=== PATIENT | female | born 1990 | race Two or more races ===

== ENCOUNTER → 2017-08-23 | Emergency (ER) | payer OTHER ==
[~2017-08-23] VITALS: Ht 144.8 cm; Wt 56.7 kg
[~2017-08-23] MED LIST: GILTUSS TR TAB1 EACH PO; ZITHROMAX500 MG PO
== END | disposition home or self-care (01) ==
LOC: ER 09:30
DX: K29.60 Other gastritis without bleeding (principal)

== ENCOUNTER 2020-07-04 23:58 | Emergency (ER) | payer OTHER ==
[~2020-07-04] VITALS: Ht 149.9 cm; Wt 59.0 kg
[2020-07-05] MEDS ORDERED: KETO10TA2 PO (05:30)
== END 2020-07-05 | disposition home or self-care (01) ==
LOC: ER 23:58
DX: D27.1 Benign neoplasm of left ovary (principal); R10.2 Pelvic and perineal pain